=== PATIENT | male | born 1945 | race Caucasian/White ===

== ENCOUNTER 2019-05-21 23:53 | Emergency (ER) | payer OTHER ==
[~2019-05-21] VITALS: Ht 167.6 cm; Wt 69.9 kg
[2019-05-22 00:23] VITALS: BP_SYST 140
[2019-05-22 01:33] LABS: BILIRUBIN,URINE NEGATIVE (NEGATIVE); BLOOD, URINE NEGATIVE (NEGATIVE); CLARITY/URINE CLEAR (CLEAR); COLOR,URINE YELLOW (YELLOW); GLUCOSE,URINE NEGATIVE (NEGATIVE); KETONES,URINE NEGATIVE (NEGATIVE); LEUKOCYTE ESTERASE ,URINE NEGATIVE (NEGATIVE); NITRITE, URINE NEGATIVE (NEGATIVE); PH,URINE 8.5 (5.0-8.0); PROTEIN URINE NEGATIVE (NEGATIVE); UROBILINOGEN,URINE 0.2 (0.2-1.0)
[2019-05-22] MEDS ORDERED: MORPHINE 4 MG/ML INJ. SYRINGE IVP ONE (03:45)
[2019-05-22] MEDS ORDERED: NACL 0.9% 1,000 ML IV ONE (03:45)
[2019-05-22 04:25] LABS: BASOPHILS # (AUTO) 0.1 K/uL (0.0-0.2); BASOPHILS % (AUTO) 0.6 % (0.0-2.0); EOSINOPHILS # (AUTO) 0.1 K/uL (0.0-0.4); EOSINOPHILS % (AUTO) 0.9 % (0.0-4.0); HEMOGLOBIN 14.6 g/dL (14.0-18.0); LYMPHOCYTES # (AUTO) 1.4 K/uL (1.0-5.5); LYMPHOCYTES % (AUTO) 14.1 % (20.5-51.5); MEAN CORPUSCULAR HEMOGLOBIN 32 pg (27-31); MEAN CORPUSCULAR HGB CONC 34 % (32-36); MEAN CORPUSCULAR VOLUME 95 fL (79.0-98.0); MONOCYTES # (AUTO) 0.9 K/uL (0.0-1.0); MONOCYTES % (AUTO) 9.6 % (1.7-9.3); NEUTROPHILS # (AUTO) 7.2 K/uL (1.8-7.7); NEUTROPHILS % (AUTO) 74.8 % (40.0-70.0); PLATELET COUNT (AUTO) 161 K/uL (130-430); RED BLOOD CELL COUNT(AUTO) 4.55 MIL/uL (4.2-6.2); RED CELL DISTRIBUTION WIDTH 13.9 % (9.0-15.0); WHITE BLOOD COUNT (AUTO) 9.6 K/uL (4.8-10.8)
[2019-05-22 04:45] LABS: ANION GAP 8 (5-15); CALCIUM 8.8 mg/dL (8.4-11.0); CHLORIDE 101 mmol/L (98-107); CREATININE 0.97 mg/dL (0.55-1.30); GLUCOSE 121 mg/dL (70-99); POTASSIUM 3.9 mmol/L (3.5-5.1); SODIUM SERUM 136 mmol/L (136-145); UREA NITROGEN, BLOOD 21 mg/dL (8-21)
[2019-05-22 04:50] LABS: INR 0.9 (0.80-1.20); PROTHROMBIN TIME 9.5 SECS (9.5-12.5)
[2019-05-22 04:51] LABS: ALANINE AMINOTRANSFERASE 236 U/L (12-78); ALBUMIN 3.7 g/dL (3.4-4.8); AMYLASE 91 U/L (0-100); ASPARTATE AMINOTRANSFERASE 349 U/L (10-37); LIPASE 150 U/L (73-393)
[2019-05-22] MEDS ORDERED: PIPERACILLIN/TAZO 3.375 GM in NS 50 ML IV ONE (05:30)
[2019-05-22] MEDS ORDERED: PIPERACILLIN/TAZOBACTAM 3.375 GM/VIAL (ZOSYN) IV ONE (06:01)
[2019-05-22 06:32] VITALS: BP_SYST 140
== END 2019-05-22 06:33 | disposition left against medical advice (07) ==
LOC: SED 23:53
DX: K57.92 Diverticulitis of intestine, part unspecified, without perforation or abscess without bleeding (principal); K76.9 Liver disease, unspecified
CPT/HCPCS: 36415; 74176; 80053; 81003; 82150; 83690; 85025; 85610; 87040; 96365; 96375; 99284; J2270; J2543; J7030

== ENCOUNTER 2021-12-06 12:00 | Emergency (ER) | payer OTHER ==
[~2021-12-06] VITALS: Ht 162.6 cm; Wt 61.2 kg
--- NOTE | 2021-12-06 12:00 | NUR ---
Placed in room 02 . Placed on monitor technician, blood pressure machine and pulse oximeter. To gown for exam. Side rails up.
[2021-12-06 12:05] VITALS: BP_SYST 134
--- NOTE | 2021-12-06 12:06 | NUR ---
Dr Esposito evaluating patient at bedside
--- NOTE | 2021-12-06 12:10 | NUR ---
Patient A/Ox4, VSS, resp even and unlabored. Patient c/o chest pain on left side radiating to the left arm. Patient states "I had this pain last night before bed and it went away. The pain came back about 20 minutes ago." Pain 10/20. Nad noted at this time. Will continue to monitor.
[2021-12-06] MEDS ORDERED: ASPIRIN 81 MG TAB.CHEW PO ONE (12:15)
--- NOTE | 2021-12-06 12:15 | NUR ---
Lab at bedside.
[2021-12-06] MEDS ORDERED: ASPIRIN 81 MG TAB.CHEW ONE (12:24)
--- NOTE | 2021-12-06 12:27 | NUR ---
Radiology at bedside.
[2021-12-06 12:31] LABS: EOSINOPHILS % (AUTO) 0.1 % (0.0-4.0); HEMATOCRIT 24.8 % (36-54); HEMOGLOBIN 8.6 g/dL (14.0-18.0); LYMPHOCYTES # (AUTO) 0.7 K/uL (1.0-5.5); LYMPHOCYTES % (AUTO) 39.7 % (20.5-51.5); MEAN CORPUSCULAR HEMOGLOBIN 34 pg (27-31); MEAN CORPUSCULAR HGB CONC 35 % (32-36); MEAN CORPUSCULAR VOLUME 97 fL (79.0-98.0); MONOCYTES # (AUTO) 0.3 K/uL (0.0-1.0); NEUTROPHILS % (AUTO) 44.2 % (40.0-70.0); PLATELET COUNT (AUTO) 71 K/uL (130-430); RED BLOOD CELL COUNT(AUTO) 2.56 MIL/uL (4.2-6.2); RED CELL DISTRIBUTION WIDTH 16.8 % (9.0-15.0)
[2021-12-06 12:54] LABS: ANION GAP 3 (5-15); CALCIUM 8.6 mg/dL (8.4-11.0); CHLORIDE 104 mmol/L (98-107); CREATININE 1.02 mg/dL (0.55-1.30); GLUCOSE 105 mg/dL (70-99); POTASSIUM 3.9 mmol/L (3.5-5.1); SODIUM SERUM 137 mmol/L (136-145); UREA NITROGEN, BLOOD 25 mg/dL (8-21)
[2021-12-06 12:57] LABS: PROTHROMBIN TIME 9.9 SECS (9.5-12.5)
[2021-12-06 13:04] LABS: ALANINE AMINOTRANSFERASE 11 U/L (12-78); ALBUMIN 3.2 g/dL (3.4-4.8); ASPARTATE AMINOTRANSFERASE 17 U/L (10-37); TOTAL BILIRUBIN 0.3 mg/dL (0.0-1.0)
[2021-12-06 13:05] LABS: NEUTROPHILS # (AUTO) 0.8 K/uL (1.8-7.7); WHITE BLOOD COUNT (AUTO) 1.8 K/uL (4.8-10.8)
--- NOTE | 2021-12-06 13:26 | NUR ---
covid swab done. walked to lab.
[2021-12-06] MEDS ORDERED: NITROGLYCERIN 0.4 MG TAB.SUBL SL ONE ×2 (13:45)
--- NOTE | 2021-12-06 13:50 | NUR ---
Pt moved to bed 06
[2021-12-06] MEDS ORDERED: ALFU10TA10 PO (15:11)
[2021-12-06] MEDS ORDERED: LEVO25TA2 PO (15:11)
[2021-12-06] MEDS ORDERED: NEU300 PO (15:11)
--- NOTE | 2021-12-06 15:30 | NUR ---
Patient eating dinner tray that family brought in from home. Patient's son at bedside.
--- NOTE | 2021-12-06 15:59 | NUR ---
MALINA Acosta at bedside.
[2021-12-06 16:16] VITALS: BP_SYST 136
--- NOTE | 2021-12-06 16:18 | NUR ---
Patient does not wish to proceed with medical care recommended by ER MD Acosta. Patient given information related to possible complications, up to and including , which could occur as a result of leaving hospital at this time. Patient verbalizes understanding of risks involved leaving against medical advice. Patient has signed AMA form.
== END 2021-12-06 16:18 | disposition left against medical advice (07) ==
LOC: SED 12:00
DX: D70.9 Neutropenia, unspecified (principal); R07.9 Chest pain, unspecified; R06.02 Shortness of breath; R53.1 Weakness; Z79.899 Other long term (current) drug therapy; Z20.822 Contact with and (suspected) exposure to COVID-19
CPT/HCPCS: 36415; 71045; 80053; 83880; 84484; 85025; 85379; 85610-TC; 85730-TC; 93005; 99285